=== PATIENT | female | born 2000 | race Caucasian/White ===

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

== ENCOUNTER 2020-06-23 23:27 | Emergency (ER) | payer OTHER ==
[~2020-06-23 23:27] MED LIST changes: +CLEOCIN HCL300 MG PO; +IBUPROFEN600 MG PO; +LODINE CAP 300300 MG PO; +OMEPRAZOLE20 MG PO; +PREDNISONE50 MG PO; +SUDOGEST60 MG PO; +VENTOLIN HFA 66.7 GM INH; +ZOFRAN ODT 4 MG4 MG PO
[2020-06-24] MEDS ORDERED: PREDNISONE20 MG PO (03:15)
== END 2020-06-24 03:38 | disposition home or self-care (01) ==
LOC: ER1 23:27
DX: O99.711 Diseases of the skin and subcutaneous tissue complicating pregnancy, first trimester (principal); L25.9 Unspecified contact dermatitis, unspecified cause; Z88.0 Allergy status to penicillin; Z3A.13 13 weeks gestation of pregnancy
CPT/HCPCS: 99282

== ENCOUNTER 2020-12-29 05:36 | Inpatient (IN) | payer OTHER ==
[~2020-12-29] VITALS: Ht 160 cm; Wt 84.4 kg
[~2020-12-29 05:36] MED LIST changes: +PREDNISONE20 MG PO
[2020-12-29] MEDS ORDERED: PRENATAL VITAM1 EAC8 PO (06:23)
[2020-12-29 06:48] LABS: HEMOGLOBIN 14.7 gm/dl (12.3-15.3); RED BLOOD COUNT 4.64 M/UL (4.00-5.10); WHITE BLOOD COUNT 12.2 K/UL (4.5-11.0)
[2020-12-29] MEDS ORDERED: DOCUSATE SODIU100 MG PO (13:15)
[2020-12-29] MEDS ORDERED: IBUPROFEN800 MG PO (13:15)
[2020-12-30 02:21] LABS: HEMOGLOBIN 13.8 gm/dl (12.3-15.3)
== END 2020-12-31 12:50 | disposition home or self-care (01) | DRG 807 ==
LOC: OB 05:36
PROVIDERS: Obstetrics & Gynecology; ADMIT Obstetrics & Gynecology
PROC: 10E0XZZ Delivery of Products of Conception, External Approach (ICD-10-PCS; principal; 2020-12-29)
PROC: 10907ZC Drainage of Amniotic Fluid, Therapeutic from Products of Conception, Via Natural or Artificial Opening (ICD-10-PCS; 2020-12-29)
PROC: 4A1HXCZ Monitoring of Products of Conception, Cardiac Rate, External Approach (ICD-10-PCS; 2020-12-29)
PROC: 3E033VJ Introduction of Other Hormone into Peripheral Vein, Percutaneous Approach (ICD-10-PCS; 2020-12-29)
PROC: 3E0234Z Introduction of Serum, Toxoid and Vaccine into Muscle, Percutaneous Approach (ICD-10-PCS; 2020-12-29)
DX: O99.214 Obesity complicating childbirth (principal); Z37.0 Single live birth; Z20.822 Contact with and (suspected) exposure to COVID-19; Z3A.40 40 weeks gestation of pregnancy; E66.9 Obesity, unspecified; Z81.1 Family history of alcohol abuse and dependence; Z82.49 Family history of ischemic heart disease and other diseases of the circulatory system; Z83.3 Family history of diabetes mellitus; Z80.8 Family history of malignant neoplasm of other organs or systems; Z88.1 Allergy status to other antibiotic agents; Z88.0 Allergy status to penicillin; Z90.49 Acquired absence of other specified parts of digestive tract; Z23 Encounter for immunization
CPT/HCPCS: 36415; 51702; 81001; 82800; 85014; 85018; 85025; 90707; C9113; J1580; J2274; J2370; J2405; J2590; J2765; J3010; J7120; U0002